=== PATIENT | female | born 1975 | race Caucasian/White ===

== ENCOUNTER 2024-11-21 06:24 | Day surgery (SDC) | payer BC, SELFPAY | END 2024-11-21 14:36 | disposition home or self-care (01) | LOC: GI 06:24 | PROVIDERS: ATTENDING PHYSICIAN Internal Medicine Gastroenterology; FAMILY PHYSICIAN Family Medicine | DX: Z12.11 Encounter for screening for malignant neoplasm of colon (principal); K64.0 First degree hemorrhoids; D12.3 Benign neoplasm of transverse colon; K63.5 Polyp of colon; K62.1 Rectal polyp; D12.0 Benign neoplasm of cecum | CPT/HCPCS: 45385; 45380; 88305 ==